=== PATIENT | female | born 2000 | race African-American/Black ===

== ENCOUNTER 2022-08-31 09:07 | Observation (INO) | payer OTHER ==
[~2022-08-31] VITALS: Ht 175.3 cm; Wt 90.4 kg
[~2022-08-31 09:07] MED LIST: HEPARIN SOD (PORCINE) 5000UNITS/ML 1ML VIAL/SYRINGE SQ ONE
[2022-08-31] MEDS ORDERED: LIDOCAINE 2% 100MG/5ML SDV (FOR ANES.) As Ordered ONE (09:14)
[2022-08-31] MEDS ORDERED: propofoL 200 MG/20 ML VIAL As Ordered ONE ×2 (09:14→14:38)
[2022-08-31] MEDS ORDERED: MIDAZOLAM INJ 2MG/2ML VIAL As Ordered ONE (09:14)
[2022-08-31] MEDS ORDERED: ONDANSETRON 4MG 2ML VIAL As Ordered ONE (09:14)
[2022-08-31] MEDS ORDERED: ROCURONIUM BROMIDE 50MG/5ML VIAL As Ordered ONE ×2 (09:14→11:13)
[2022-08-31] MEDS ORDERED: fentaNYL 250 MCG/5 ML INJECTION As Ordered ONE (09:15)
[2022-08-31] MEDS ORDERED: LR 1,000 ML IV SCH ×2 (09:45→14:05)
[2022-08-31] MEDS ORDERED: BUPIVACAINE LIPOSOME/PF 1.3% 20ML VIAL (13.3MG/ML)(EXPAREL) As Ordered ONE (09:47)
[2022-08-31] MEDS ORDERED: BUPIVACAINE HCL 0.25% 10ML VIAL As Ordered ONE (09:48)
[2022-08-31] MEDS ORDERED: GENTAMICIN SULF 80MG/2ML VIAL As Ordered ONE (09:48)
[2022-08-31] MEDS ORDERED: SEVOFLURANE INHAL SOLN 250 ML BTL As Ordered ONE (09:56)
[2022-08-31] MEDS ORDERED: SCOPOLAMINE 1MG TRANSDERMAL PATCH TOP ONE (10:05)
[2022-08-31] MEDS: ceFAZolin SOD 2 GM in IV 1 EA IV ONE ×2 (10:35→11:57)
[2022-08-31] MEDS ORDERED: SUGAMMADEX SODIUM 500 MG/5 ML VIAL (BRIDION) As Ordered ONE (11:06)
[2022-08-31] MEDS ORDERED: HYDROmorphone HCL 2MG/ML 1ML VIAL As Ordered ONE (11:06)
[2022-08-31] MEDS ORDERED: fentaNYL 100 MCG/2 ML INJECTION IV PRN (14:05)
[2022-08-31] MEDS ORDERED: ONDANSETRON 4MG 2ML VIAL IV PRN ×2 (14:05→14:15)
[2022-08-31] MEDS ORDERED: oxyCODONE 5MG TAB PO PRN (14:05)
[2022-08-31] MEDS ORDERED: ACETAMINOPHEN TAB 650MG DOSE (2X325MG) PO PRN (14:15)
[2022-08-31] MEDS ORDERED: KETOROLAC TROMETHAMINE 10 MG TAB PO PRN (14:15)
[2022-08-31] MEDS: HYDROMORPHONE HCL 0.5 MG/ 0.5 ML SYRINGE IV PRN ×2 (14:59→15:07)
[2022-08-31] MEDS ORDERED: ACETAMINOPHEN 1000MG 100ML IV BAG As Ordered ONE (15:59)
[2022-08-31 16:00] VITALS: BP 139/89
[2022-08-31 16:30] VITALS: BP 140/89
[2022-08-31 17:00] VITALS: BP 139/89
[2022-08-31 18:00] VITALS: BP 139/88
[2022-08-31] MEDS: ceFAZolin SOD 1 GM in D5W MINI-BAG PLUS 50 ML IV SCH (18:23)
[2022-08-31 19:00] VITALS: BP 139/87
[2022-08-31] MEDS: traMADol 50 MG TAB PO PRN (20:21)
[2022-08-31 21:37] VITALS: BP 138/87
[2022-09-01 02:00] VITALS: BP 114/56
[2022-09-01] MEDS: ceFAZolin SOD 1 GM in D5W MINI-BAG PLUS 50 ML IV SCH (02:52)
[2022-09-01] MEDS: LR 1,000 ML IV SCH ×2 (02:52→03:35)
[2022-09-01] MEDS: traMADol 50 MG TAB PO PRN ×2 (05:52→11:29)
[2022-09-01 10:00] VITALS: BP 115/56
[2022-09-01] MEDS ORDERED: TRAM50TA2 PO (10:19)
== END 2022-09-01 12:55 | disposition home or self-care (01) ==
LOC: M SDC 09:07 → M MS5PR 09:08
PROVIDERS: ADMIT Plastic Surgery Surgery of the Hand; ATTEND Plastic Surgery Surgery of the Hand
DX: N62 Hypertrophy of breast (principal); N64.81 Ptosis of breast; M54.2 Cervicalgia; M54.6 Pain in thoracic spine
CPT/HCPCS: 19318; 81025; 88305; 96374; 96376; C9290; J0131; J0690; J1100; J1170; J1580; J1644; J2250; J2405; J3010; S0020